=== PATIENT | male | born 1945 | race Caucasian/White ===

== ENCOUNTER 2017-10-24 13:46 | Inpatient (IN) | payer OTHER ==
[~2017-10-24] VITALS: Ht 182.9 cm; Wt 92.1 kg
--- NOTE | ~2017-10-24 | EKG ---
[place] [address] [facility] [place] [address] ELECTROCARDIOGRAM REPORT Name: PAULA DAUGHERTY Room #: 170-1 ADM IN M.R.#: [id number] Admission: 10/24/17 Attend Phys: Singh Bright MD Discharge: Date of : 49 Report #: [id number] THIS REPORT FOR: //name// [facility] ED Test Date: 2017-10-24 Test Time: 15:24:21 Pat Name: PAULA DAUGHERTY Department: Room: Gender: M Recreation Counselor: [facility] : 1945 Requested By: Ángel Lao Order Number: [id number] MD: Herb Wynn Measurements Intervals [place] Rate: 82 P: 76 LA: 153 QRS: -122 QRSD: 161 T: 38 QT: 403 QTc: 471 Interpretive Statements Sinus rhythm Right bundle branch block Inferior infarct, old No previous ECG available for comparison Electronically Signed On 10-25-2017 10:17:27 CDT by Herb Wynn [email or web address] <ELECTRONICALLY SIGNED> By: Herb Wynn MD, [facility] 10/25/17 1017 1524 1524 Herb Wynn MD, FACC /EPI
[2017-10-24 14:05] VITALS: BP 120/68
[2017-10-24 14:45] LABS: ABSOLUTE NEUTROPHILS 9.6 thou/uL (1.4-8.2); BASOPHILS 0.7 % (0.0-2.0); EOSINOPHILS 3.5 % (0.0-3.0); HEMATOCRIT 36.7 % (42.0-52.0); HEMOGLOBIN 12.1 gm/dL (14.0-18.0); LYMPHOCYTES 9.1 % (24.0-44.0); MCH 30.1 pg (26.0-34.0); MCV 91.2 fL (80.0-100.0); MONOCYTES 5.7 % (1.0-8.0); PLATELET COUNT 278 thou/uL (150-400); RBC 4.02 mil/uL (4.50-6.00); RDW 14.9 % (10.5-14.5); WBC 11.9 thou/uL (4.0-11.0)
[2017-10-24 14:54] LABS: CALCIUM 8.4 mg/dL (8.5-10.1); CREATININE 3.5 mg/dL (0.7-1.3); POTASSIUM 5.9 mmol/L (3.5-5.1)
[2017-10-24 15:46] VITALS: BP 120/68
[2017-10-24 16:17] VITALS: BP 121/69
== END 2017-10-27 19:49 | disposition short-term general hospital (02) | DRG 300 ==
LOC: ER 13:46 → 2N 15:19 → EROBS 15:19 → 2N 16:34 → EROBS 17:05 → 2N 17:05
PROVIDERS: Physician Assistant
DX: I70.202 Unspecified atherosclerosis of native arteries of extremities, left leg (principal); N17.9 Acute kidney failure, unspecified; M86.172 Other acute osteomyelitis, left ankle and foot; E11.51 Type 2 diabetes mellitus with diabetic peripheral angiopathy without gangrene; E11.69 Type 2 diabetes mellitus with other specified complication; I11.0 Hypertensive heart disease with heart failure; I50.9 Heart failure, unspecified; E87.5 Hyperkalemia; Z89.412 Acquired absence of left great toe; Z89.511 Acquired absence of right leg below knee
CPT/HCPCS: 10081